=== PATIENT | female | born 1970 | race Caucasian/White ===

== ENCOUNTER 2016-12-07 05:40 | Observation (INO) | payer BC ==
[2016-12-07] MEDS ORDERED: LIDOCAINE 1% 5 ML SDV ONE (05:56)
[2016-12-07] MEDS ORDERED: LR 1,000 ML IV ONE (06:43)
[2016-12-07] MEDS ORDERED: LIDOCAINE 1% 5 ML SDV ID PRN (06:43)
[2016-12-07] MEDS ORDERED: BUPIVACAINE/EPI 0.25% 30 ML SDV ONE (06:57)
[2016-12-07] MEDS ORDERED: fentaNYL 100 MCG/2 ML INJ ONE ×2 (07:00→09:16)
[2016-12-07] MEDS ORDERED: PROPOFOL 200 MG/20 ML VIAL ONE (07:00)
[2016-12-07] MEDS ORDERED: LIDOCAINE 2% 5 ML SDV ONE (07:03)
[2016-12-07] MEDS ORDERED: ROCURONIUM 50 MG/5 ML VIAL ONE (07:03)
[2016-12-07] MEDS ORDERED: MIDAZOLAM 2 MG/2 ML VIAL ONE (07:13)
[2016-12-07] MEDS ORDERED: ONDANSETRON 4 MG/2 ML VIAL ONE (08:13)
[2016-12-07] MEDS ORDERED: SUGAMMADEX SODIUM 200 MG/2 ML VIAL IVP ONE (08:13)
--- NOTE | 2016-12-07 08:39 | POSTOPPROG ---
Post Op Note Date of Operation: 12/07/16 Surgeon: José Luis Pang Anesthesiologist: Mj Anesthesia: GET(General Endotracheal) Pre-op Diagnosis: Chronic tonsillitis Post-op Diagnosis: chronic tonsillitis Indication: chronic tonsillitis Procedure: Tonsillectomy Findings: Cryptic pitted grade 2-3 tonsils, R>L Inf/Abcess present in the surg proc area at time of surgery?: No Depth: Deep Incisional (Fascial) EBL: Minimal Complications: NONE Specimen(s): Tonsils
[2016-12-07] MEDS: D5W 1/2 NS 1,000 ML IV SCH ×2 (10:20→21:14)
[2016-12-07] MEDS: HYDROCOD/APAP 7.5/325 IN 15ML UDCUP PO PRN ×3 (13:02→21:13)
[2016-12-07] MEDS: HEPARIN 5,000 UNIT/0.5 ML SYR SC SCH ×2 (15:07→21:14)
[2016-12-07 21:41] VITALS: O2SAT 92
[2016-12-08] MEDS: HEPARIN 5,000 UNIT/0.5 ML SYR SC SCH (06:46)
[2016-12-08] MEDS: HYDROCOD/APAP 7.5/325 IN 15ML UDCUP PO PRN ×2 (06:50→10:05)
--- NOTE | 2016-12-08 07:21 | SOAPPROG ---
SOAP Progress Note Assessment/Plan: Assessment: S/P 12/07/16 Tonsillectomy. Appropriate recovery and findings. Plan: D/C to home. Follow up Dr. Pang (ENT) in 3-4 weeks. See printed discharge instructions. 12/08/16 07:18 Subjective: Complaints of pain improved with analgesics. Objective: Vital Signs Temp Pulse Resp BP Pulse Ox 36.6 C 56 L 14 117/71 92 12/07/16 21:40 12/07/16 21:40 12/07/16 21:40 12/07/16 21:40 12/07/16 21:40 12/07/16 12/08/16 12/09/16 05:59 05:59 05:59 Intake Total 2960 Output Total 50 Balance 2910 Physical Exam - Physical Exam General Appearance: WD/WN, alert, no apparent distress EENT: PERRL/EOMI, No pharynx normal (Escar at B/L tonsillar fossae. No bleeding/ ooze. Good voice. ) Neck: non-tender, supple, normal inspection Respiratory: No stridor, No wheezing Neuro/Psych: alert, normal mood/affect ICD10 Worksheet Patient Problems: Problems Problem Status Onset Tonsillitis, chronic Acute Tonsillitis, chronic Acute - ICD10 Problem Qualifiers (1) Tonsillitis, chronic (2) Tonsillitis, chronic
[2016-12-08 07:26] VITALS: BP 126/66; PULSE 76; RESP 18; TEMP 98.4
--- NOTE | 2016-12-08 21:27 | GOP ---
DATE OF OPERATION: 12/07/2016 SURGEON: José Luis Pang MD ANESTHESIA: General. PREOPERATIVE DIAGNOSIS: Chronic tonsillitis. POSTOPERATIVE DIAGNOSIS: Chronic tonsillitis. PROCEDURE PERFORMED: Tonsillectomy. FINDINGS: Cryptic, pitted, grade 2-3, left greater than right tonsils. SPECIMENS: Bilateral tonsils. ESTIMATED BLOOD LOSS: 5 mL. INDICATIONS: Patient was seen in outpatient clinic and found to have been suffering from chronic to nsillitis with recurrent purulent drainage. Given her history and findings, she was determined to b e an appropriate candidate for the above-stated procedure. The risks, benefits, and alternatives to the procedures were explained at length to the patient who stated she understood and agreed. DESCRIPTION OF PROCEDURE: Patient was brought to the operating room by Anesthesiology and placed on the operating table. Once the appropriate level of anesthesia was achieved, the patient was preppe d and draped in usual fashion. A shoulder roll was placed and the operating table was turned 90 deg stefani. A McIvor mouth gag was placed atraumatically in the oral cavity and suspended on a Foster stand . The right tonsil was excised first using Bovie electrocautery technique. There was mild bleeding with this, but hemostasis was achieved using Bovie electrocautery and Bovie suction electrocautery. The left tonsil was then excised using Bovie electrocautery technique. Purulent material was seen at the inferior pole of the tonsil. Dissection continued once this was expressed. There was minim al bleeding with final removal of the tonsil. Hemostasis was achieved with Bovie electrocautery and suction electrocautery alone. A red rubber catheter was then placed through the right nasal cavity and used to suspend the soft palate. Under mirror visualization, the adenoid pad was inspected. N o hypertrophy was found. Red rubber catheter was removed and the nasopharynx was suctioned out. Th e tonsillar fossae were reinspected for bleeding. None was found. An OG tube was then passed. The McIvor mouth gag was released and withdrawn. The patient tolerated the procedure well and was extu bated in the operating room prior to being transferred in good condition to the post anesthesia care unit. COMPLICATIONS: None. /[id number]/MODL
== END 2016-12-08 10:12 | disposition home or self-care (01) ==
LOC: FSGY 05:40 → F3E 08:40
PROVIDERS: ADMIT Otolaryngology; ATTEND Otolaryngology
PROC: 0CTPXZZ Resection of Tonsils, External Approach (ICD-10-PCS; principal; 2016-12-07 07:15)
DX: J35.01 Chronic tonsillitis (principal); G47.33 Obstructive sleep apnea (adult) (pediatric); J34.89 Other specified disorders of nose and nasal sinuses
CPT/HCPCS: 42826; G0378; J2250; J2405; J2704; J3010

== ENCOUNTER → 2017-03-01 | Outpatient (CLI) | payer BC | LOC: BMCIMAGING 11:56 | PROVIDERS: ATTEND Internal Medicine Rheumatology | DX: M17.0 Bilateral primary osteoarthritis of knee (principal); M25.461 Effusion, right knee; M25.462 Effusion, left knee ==

== ENCOUNTER → 2017-10-04 | Outpatient (CLI) | payer BC | LOC: FIMAGING 15:45 | PROVIDERS: ATTEND Obstetrics & Gynecology Gynecology | DX: Z12.31 Encounter for screening mammogram for malignant neoplasm of breast (principal) | CPT/HCPCS: G0202 ==

== ENCOUNTER → 2018-03-20 | Outpatient (CLI) | payer OTHER ==
--- NOTE | 2018-03-20 13:03 | CPEEG ---
[f rep st] ELECTROENCEPHALOGRAM DATE OF STUDY: 03/20/2018 INTERPRETATION: Normal EEG during wakefulness and sleep. There were no potentially epileptogenic ab normalities present in the recording. REPORT: This EEG contains 10-11 Hz alpha activity to the posterior head regions. There was no abnor mal activation at rest, during photic stimulation, or hyperventilation. The patient became drowsy an d fell asleep during the study. During drowsiness, the patient had bitemporal theta transients. Thi s was a normal drowsy pattern. There was no abnormal activation during drowsiness, sleep, or during times of arousal. /[id number]/MODL
== END ==
LOC: FCPNEURO 07:33
PROVIDERS: ATTEND Psychiatry & Neurology Neurology
DX: R42 Dizziness and giddiness (principal)

== ENCOUNTER → 2018-04-06 | Outpatient (CLI) | payer OTHER ==
[~2018-04-06] MED LIST: GADOBUTROL 10 ML VIAL IVP ONE
== END ==
LOC: FIMAGING 10:04
PROVIDERS: ATTEND Psychiatry & Neurology Neurology
DX: R42 Dizziness and giddiness (principal)
CPT/HCPCS: A9585